=== PATIENT | female | born 1960 | race Native Hawaiian/Other Pacific Islander ===

== ENCOUNTER 2018-03-31 09:13 | Outpatient (CLI) | payer OTHER ==
[~2018-03-31 09:13] MED LIST: ALPR0.2566 PO; ALPR0.5T24 PO; ANORO ELLIPTA 61 AER IN; BENTYL10 MG PO; BUDE1AER3 INH; BUSP5TAB2 PO; CADUET10 MG/10 M PO; CITALOPRAM20 MG PO; CITALOPRAM40 MG PO; CLARITIN10 MG PO; CYCL10TA35 PO; DICY20TA34 PO; ESCITALOPRAM10 MG PO; ESCITALOPRAM20 MG PO; FLUTICASONE50 MCG; GABA300C2 PO; HYDR10TA47 PO; HYDR12.54; HYDR25TA15 PO; JANTOVEN6 MG OR; LEXAPRO20 MG OR; LOSA50TA PO; LOVASTATIN10 MG PO; MECLIZINE25 MG PO; MELOXICAM7.5 MG PO; META800T35; METO50TA27 PO; METOPROLOL25 M1 OR; METOPROLOL25 M1 PO; OLOP0.1S OPTH; OMEPRAZOLE40 MG OR; PANTOPRAZOLE 40MG TA PO; PROMETHAZINE25 M1 RE; PROVENTIL IN; REQUIP0.25 MG OR; ROPINIROLE0.25 MG PO; ROPINIROLE1 MG OR; SUCRALFATE1 GM PO; TOPAMAX50 MG OR; TOPIRAMATE50 MG OR; TOPIRAMATE50 MG PO; TRAMADOL HCL100 M1 OR; WARFARIN4 MG PO; WARFARIN6 MG PO; XANAX XR1 MG OR; Z-PAK PO; ZANTAC300 MG PO; ZIPR20CA PO; ZIPRASIDONE HCL20 MG OR
== END 2018-03-31 21:13 | disposition home or self-care (01) ==
LOC: CT 09:13
DX: M79.602 Pain in left arm (principal)
CPT/HCPCS: 36415; 82565; 84520

== ENCOUNTER 2018-04-19 07:14 | Day surgery (SDC) | payer OTHER ==
[~2018-04-19] VITALS: Ht 30.5 cm; Wt 0.5 kg
[~2018-04-19 07:14] MED LIST changes: -ALPR0.5T24 PO; -ANORO ELLIPTA 61 AER IN; -BENTYL10 MG PO; -BUDE1AER3 INH; -BUSP5TAB2 PO; -ESCITALOPRAM10 MG PO; -FLUTICASONE50 MCG; -GABA300C2 PO; -HYDR12.54; -JANTOVEN6 MG OR; -LEXAPRO20 MG OR; -LOSA50TA PO; -META800T35; -METOPROLOL25 M1 OR; -OMEPRAZOLE40 MG OR; -PANTOPRAZOLE 40MG TA PO; -PROMETHAZINE25 M1 RE; -PROVENTIL IN; -REQUIP0.25 MG OR; -ROPINIROLE1 MG OR; -TOPAMAX50 MG OR; -TOPIRAMATE50 MG OR; -TRAMADOL HCL100 M1 OR; -XANAX XR1 MG OR; -Z-PAK PO; -ZIPR20CA PO; -ZIPRASIDONE HCL20 MG OR
[2018-04-19 11:38] LABS: POTASSIUM 4.3 mmol/L (3.6-5.2)
== END 2018-04-19 15:50 | disposition home or self-care (01) ==
LOC: OR 07:14
PROVIDERS: Student in an Organized Health Care Education/Training Program
PROC: 0HQEXZZ Repair Left Lower Arm Skin, External Approach (ICD-10-PCS; principal; 2018-04-19)
PROC: 0HBEXZZ Excision of Left Lower Arm Skin, External Approach (ICD-10-PCS; 2018-04-19)
DX: C44.619 Basal cell carcinoma of skin of left upper limb, including shoulder (principal)
CPT/HCPCS: 80053; J0690; J1100; J1642; J2001; J2250; J2405; J2704; J3010; J3490

== ENCOUNTER 2018-05-10 20:37 | Emergency (ER) | payer OTHER ==
[~2018-05-10] VITALS: Ht 165.1 cm; Wt 73.5 kg
[2018-05-10 21:47] LABS: PLATELET COUNT 325 K/uL (152-353)
[2018-05-11 00:15] VITALS: BP 114/62; TEMP 97.9
== END 2018-05-11 00:16 | disposition home or self-care (01) ==
LOC: ED 20:37
PROVIDERS: Internal Medicine
DX: E87.6 Hypokalemia (principal); R10.84 Generalized abdominal pain; R19.7 Diarrhea, unspecified; R63.4 Abnormal weight loss
CPT/HCPCS: 74022; 80053; 85027; 96365; 96374; 99284; J1642; J2405

== ENCOUNTER 2018-05-30 00:47 | Inpatient (IN) | payer OTHER ==
[~2018-05-30] VITALS: Ht 170.2 cm; Wt 74.1 kg
[2018-05-30 00:47] VITALS: BP 158/82; TEMP 98.8
[2018-05-30 03:20] LABS: PLATELET COUNT 299 K/uL (152-353)
[2018-05-30 03:25] LABS: POTASSIUM 4.3 mmol/L (3.6-5.2)
[2018-05-30 05:58] VITALS: BP 127/72; TEMP 98; Ht 170.2 cm; Wt 74.1 kg
[2018-05-30 08:00] VITALS: BP 97/55; TEMP 97.8
[2018-05-30 08:06] LABS: PARTIAL THROMBOPLASTIN TIME 23.5 SECONDS (24.5-33.6)
[2018-05-30 12:00] VITALS: BP 128/69; TEMP 97.9
[2018-05-30 16:14] VITALS: BP 110/57; TEMP 98.1
[2018-05-30 20:27] VITALS: BP 130/70; TEMP 97.7
[2018-05-31] VITALS: BP 91/47; TEMP 98.1
[2018-05-31 04:14] VITALS: BP 101/57; TEMP 98
[2018-05-31 08:09] VITALS: BP 129/66; TEMP 97.9
[2018-05-31 12:00] VITALS: BP 105/58; TEMP 97.9
[2018-05-31 16:22] VITALS: BP 98/53; TEMP 98
[2018-05-31 20:15] VITALS: BP 108/71; TEMP 98.8
[2018-06-01 00:14] VITALS: BP 125/71; TEMP 98.4
[2018-06-01 04:00] VITALS: BP 112/65; TEMP 98.2
[2018-06-01 06:42] LABS: PLATELET COUNT 305 K/uL (152-353)
[2018-06-01 06:48] LABS: POTASSIUM 4.2 mmol/L (3.6-5.2)
[2018-06-01 08:10] VITALS: BP 113/68; TEMP 98.1
[2018-06-01 12:20] VITALS: BP 135/77; TEMP 98
[2018-06-01 16:25] VITALS: BP 125/71; TEMP 98.1
[2018-06-01 20:14] VITALS: BP 129/77; TEMP 98.4
[2018-06-02] VITALS: BP 122/68; TEMP 98.1
[2018-06-02 04:00] VITALS: BP 118/76; TEMP 98.1
[2018-06-02 08:00] VITALS: BP 150/92; TEMP 98
[2018-06-02 12:00] VITALS: BP 105/63; TEMP 98.2
[2018-06-02 16:00] VITALS: BP 100/63; TEMP 99.3
[2018-06-02 20:00] VITALS: BP 113/72; TEMP 98.2
[2018-06-03 00:21] VITALS: BP 100/50; TEMP 97.7
[2018-06-03 04:26] VITALS: BP 94/54; TEMP 97.7
[2018-06-03 08:04] VITALS: BP 104/59; TEMP 97.6
== END 2018-06-03 11:23 | disposition home or self-care (01) | DRG 65 ==
LOC: ED 00:47 → MED/SURG 04:15
PROVIDERS: Internal Medicine; ADMIT Family Medicine
DX: I63.89 Other cerebral infarction (principal); G81.91 Hemiplegia, unspecified affecting right dominant side; N39.0 Urinary tract infection, site not specified; N18.4 Chronic kidney disease, stage 4 (severe); I12.9 Hypertensive chronic kidney disease with stage 1 through stage 4 chronic kidney disease, or unspecified chronic kidney disease; E11.22 Type 2 diabetes mellitus with diabetic chronic kidney disease; J44.9 Chronic obstructive pulmonary disease, unspecified; K21.9 Gastro-esophageal reflux disease without esophagitis; F41.8 Other specified anxiety disorders; I25.10 Atherosclerotic heart disease of native coronary artery without angina pectoris; I25.2 Old myocardial infarction
CPT/HCPCS: 80048; 80053; 80307; 81000; 85027; 85610; 85730; 87086; 87088; 93306; 94640; 94664; 94760; 96374; 99284; J0696; J1642; J1650; J2405

== ENCOUNTER 2018-06-18 12:42 | Outpatient (CLI) | payer OTHER ==
[2018-06-18] MEDS ORDERED: DICYCLOMINE HYD20 MG PO (18:38)
[2018-06-18] MEDS ORDERED: METOPROLOL25 M1 PO (18:39)
[2018-06-18] MEDS ORDERED: ROPINIROLE1 MG PO (18:40)
[2018-06-18] MEDS ORDERED: ESCITALOPRAM10 MG PO (18:40)
[2018-06-18] MEDS ORDERED: META800T35 PO (18:41)
[2018-06-18] MEDS ORDERED: ALPR0.5T24 PO (18:41)
[2018-06-18] MEDS ORDERED: HYDR10TA47 PO (18:42)
[2018-06-18] MEDS ORDERED: GABA300C2 PO (18:43)
[2018-06-18] MEDS ORDERED: PANTOPRAZOLE 40MG TA PO (18:43)
[2018-06-18] MEDS ORDERED: HYDROCHLOROT12.5 M1 PO (18:43)
[2018-06-18] MEDS ORDERED: ASPIR-8181 MG PO (18:44)
[2018-06-18] MEDS ORDERED: BUDE1AER3 INH (18:45)
[2018-06-18] MEDS ORDERED: PROVENTIL INH (18:47)
== END 2018-06-18 12:47 | disposition short-term general hospital (02) ==
LOC: AMB 12:42
DX: R40.4 Transient alteration of awareness (principal)
CPT/HCPCS: A0425; A0427

== ENCOUNTER 2018-07-19 18:40 | Inpatient (IN) | payer OTHER ==
[~2018-07-19] VITALS: Ht 162.6 cm; Wt 84.2 kg
[2018-07-19] VITALS (8 sets, daily range): BP systolic 111–137; BP diastolic 68–86; TEMP 97.3–97.7
[~2018-07-19 18:40] MED LIST changes: +ALPR0.5T24 PO; +ANORO ELLIPTA 61 AER IN; +ASPIR-8181 MG PO; +BENTYL10 MG PO; +BUDE1AER3 INH; +BUSP5TAB2 PO; +DICYCLOMINE HYD20 MG PO; +ESCITALOPRAM10 MG PO; +FLUTICASONE50 MCG; +GABA300C2 PO; +HYDR12.54; +HYDROCHLOROT12.5 M1 PO; +JANTOVEN6 MG OR; +LEXAPRO20 MG OR; +LOSA50TA PO; +META800T35; +META800T35 PO; +METOPROLOL25 M1 OR; +OMEPRAZOLE40 MG OR; +PANTOPRAZOLE 40MG TA PO; +PROMETHAZINE25 M1 RE; +PROVENTIL IN; +PROVENTIL INH; +REQUIP0.25 MG OR; +ROPINIROLE1 MG OR; +ROPINIROLE1 MG PO; +TOPAMAX50 MG OR; +TOPIRAMATE50 MG OR; +TRAMADOL HCL100 M1 OR; +XANAX XR1 MG OR; +Z-PAK PO; +ZIPR20CA PO; +ZIPRASIDONE HCL20 MG OR
[2018-07-19 19:44] LABS: PLATELET COUNT 367 K/uL (152-353)
[2018-07-19 20:22] LABS: POTASSIUM 2.2 mmol/L (3.6-5.2)
[2018-07-20 01:10] VITALS: BP 104/63; TEMP 98.5; Ht 162.6 cm; Wt 84.2 kg
[2018-07-20 05:06] VITALS: BP 98/54; TEMP 99
[2018-07-20 06:30] LABS: POTASSIUM 3.7 mmol/L (3.6-5.2)
[2018-07-20 06:49] LABS: PLATELET COUNT 215 K/uL (152-353)
[2018-07-20 08:16] VITALS: BP 94/63; TEMP 97.9
[2018-07-20 12:16] VITALS: BP 117/71; TEMP 98.5
[2018-07-20 16:08] VITALS: BP 78/58; TEMP 99
[2018-07-20 20:00] VITALS: BP 107/60; TEMP 98.5
[2018-07-21] VITALS: BP 90/52; TEMP 97.6
[2018-07-21 04:00] VITALS: BP 90/51; TEMP 98.4
[2018-07-21 06:08] LABS: POTASSIUM 3.5 mmol/L (3.6-5.2)
[2018-07-21 08:15] VITALS: BP 123/66; TEMP 98.6
[2018-07-21 12:20] VITALS: BP 114/54; TEMP 98.8
[2018-07-21 16:20] VITALS: BP 107/62; TEMP 98.6
[2018-07-21 20:00] VITALS: BP 108/58; TEMP 98.5
[2018-07-22] VITALS: BP 104/53; TEMP 98.8
[2018-07-22 04:00] VITALS: BP 111/68; TEMP 98
[2018-07-22 08:01] VITALS: BP 163/83; TEMP 98.7
[2018-07-22 12:00] VITALS: BP 147/84; TEMP 98
[2018-07-22 16:00] VITALS: BP 154/69; TEMP 98
[2018-07-22 20:23] VITALS: BP 130/82; TEMP 98.1
[2018-07-23 00:02] VITALS: BP 127/73; TEMP 98.8
[2018-07-23 04:00] VITALS: BP 140/85; TEMP 98.8
[2018-07-23 05:25] LABS: POTASSIUM 4.3 mmol/L (3.6-5.2)
[2018-07-23 05:51] LABS: PLATELET COUNT 271 K/uL (152-353)
[2018-07-23 08:03] VITALS: BP 145/91; TEMP 98
[2018-07-23 12:00] VITALS: BP 154/62; TEMP 98.8
[2018-07-23 16:09] VITALS: BP 144/78; TEMP 98.1
[2018-07-23 20:00] VITALS: BP 128/77; TEMP 97.8
[2018-07-24] VITALS (7 sets, daily range): BP systolic 140–168; BP diastolic 65–86; TEMP 97.9–99.4
[2018-07-25 04:24] VITALS: BP 152/92; TEMP 97.4
[2018-07-25 08:00] VITALS: BP 155/88; TEMP 98.9
[2018-07-25 12:00] VITALS: BP 162/86; TEMP 98.6
[2018-07-25 16:10] VITALS: BP 145/82; TEMP 98.3
[2018-07-25 20:00] VITALS: BP 144/87; TEMP 98.8
[2018-07-25 23:59] VITALS: BP 135/72; TEMP 98.6
[2018-07-26 04:00] VITALS: BP 141/79; TEMP 98.5
[2018-07-26 08:00] VITALS: BP 173/73; TEMP 99.2
== END 2018-07-26 11:02 | disposition home or self-care (01) | DRG 191 ==
LOC: ED 18:40 → MED/SURG 21:32
PROVIDERS: Family Medicine; Internal Medicine; ADMIT Internal Medicine
DX: J44.0 Chronic obstructive pulmonary disease with (acute) lower respiratory infection (principal); N18.4 Chronic kidney disease, stage 4 (severe); E87.1 Hypo-osmolality and hyponatremia; J20.9 Acute bronchitis, unspecified; J44.1 Chronic obstructive pulmonary disease with (acute) exacerbation; R51 Headache; K21.9 Gastro-esophageal reflux disease without esophagitis; G25.81 Restless legs syndrome; F41.8 Other specified anxiety disorders; I12.9 Hypertensive chronic kidney disease with stage 1 through stage 4 chronic kidney disease, or unspecified chronic kidney disease; Z86.73 Personal history of transient ischemic attack (TIA), and cerebral infarction without residual deficits; I25.10 Atherosclerotic heart disease of native coronary artery without angina pectoris; I25.2 Old myocardial infarction; E87.6 Hypokalemia
CPT/HCPCS: 36415; 80048; 80053; 82607; 83735; 85027; 87040; 87502; 93005; 94640; 94664; 94760; 96365; 96366; 96375; 99284; J0456; J0696; J1642; J2405; J2930

== ENCOUNTER 2018-09-11 23:30 | Outpatient (CLI) | payer OTHER | END 2018-09-11 23:33 | disposition short-term general hospital (02) | LOC: AMB 23:30 | DX: J44.1 Chronic obstructive pulmonary disease with (acute) exacerbation (principal); R06.02 Shortness of breath | CPT/HCPCS: A0425; A0427 ==

== ENCOUNTER 2018-09-11 23:36 | Emergency (ER) | payer OTHER ==
[~2018-09-11] VITALS: Ht 162.6 cm; Wt 83.9 kg
[2018-09-12 00:11] LABS: PLATELET COUNT 471 K/uL (152-353)
[2018-09-12 00:26] LABS: POTASSIUM 2.6 mmol/L (3.6-5.2)
[2018-09-12 01:51] VITALS: BP 117/84; TEMP 98.5
== END 2018-09-12 01:57 | disposition home or self-care (01) ==
LOC: ED 23:36
PROVIDERS: Family Medicine
DX: J40 Bronchitis, not specified as acute or chronic (principal); E87.6 Hypokalemia; R42 Dizziness and giddiness
CPT/HCPCS: 36415; 80053; 81000; 85027; 94664; 96374; 96375; 99284; J1642; J2405; J2930

== ENCOUNTER 2018-09-18 21:32 | Outpatient (CLI) | payer OTHER ==
[2018-09-18] MEDS ORDERED: KLOR-CON M2020 MEQ PO (22:27)
[2018-09-18] MEDS ORDERED: BEVESPI AEROSPH1 AER INH (22:28)
[2018-09-18] MEDS ORDERED: ONDANSETRON4 M2 PO (22:29)
== END 2018-09-18 21:33 | disposition short-term general hospital (02) ==
LOC: AMB 21:32
DX: R06.02 Shortness of breath (principal); R53.81 Other malaise
CPT/HCPCS: A0425; A0427

== ENCOUNTER 2018-09-18 21:34 | Emergency (ER) | payer OTHER ==
[~2018-09-18] VITALS: Ht 170.2 cm; Wt 72.6 kg
[2018-09-18] MEDS ORDERED: KLOR-CON M2020 MEQ PO (22:27)
[2018-09-18] MEDS ORDERED: BEVESPI AEROSPH1 AER INH (22:28)
[2018-09-18] MEDS ORDERED: ONDANSETRON4 M2 PO (22:29)
[2018-09-18 23:01] LABS: PLATELET COUNT 468 K/uL (152-353)
[2018-09-19 00:48] VITALS: BP 135/59; TEMP 98.5
== END 2018-09-19 00:52 | disposition home or self-care (01) ==
LOC: ED 21:41
PROVIDERS: Internal Medicine
DX: R05 Cough (principal); D72.828 Other elevated white blood cell count; J40 Bronchitis, not specified as acute or chronic
CPT/HCPCS: 36415; 80053; 82805; 85027; 94664; 99283; J1642

== ENCOUNTER 2019-01-05 15:17 | Outpatient (CLI) | payer OTHER ==
[~2019-01-05 15:17] MED LIST changes: +BEVESPI AEROSPH1 AER INH; +KLOR-CON M2020 MEQ PO; +ONDANSETRON4 M2 PO
== END 2019-01-05 20:49 | disposition home or self-care (01) ==
LOC: RAD 15:17
DX: M25.531 Pain in right wrist (principal)

== ENCOUNTER 2019-06-20 19:13 | Outpatient (CLI) | payer OTHER | END 2019-06-20 19:18 | disposition short-term general hospital (02) | LOC: AMB 19:13 | DX: M54.5 Low back pain (principal); S41.112A Laceration without foreign body of left upper arm, initial encounter; W20.8XXA Other cause of strike by thrown, projected or falling object, initial encounter; Y92.017 Garden or yard in single-family (private) house as the place of occurrence of the external cause | CPT/HCPCS: A0425; A0427 ==

== ENCOUNTER 2019-06-20 19:24 | Emergency (ER) | payer OTHER ==
[~2019-06-20] VITALS: Ht 170.2 cm; Wt 63.5 kg
[2019-06-20 22:09] VITALS: BP 129/74; TEMP 97.7
== END 2019-06-20 22:10 | disposition home or self-care (01) ==
LOC: ED 19:24
DX: S51.812A Laceration without foreign body of left forearm, initial encounter (principal); S50.12XA Contusion of left forearm, initial encounter; M54.5 Low back pain; W18.09XA Striking against other object with subsequent fall, initial encounter; Y92.027 Garden or yard of mobile home as the place of occurrence of the external cause
CPT/HCPCS: 99283

== ENCOUNTER 2019-09-10 00:40 | Outpatient (CLI) | payer OTHER | END 2019-09-10 00:45 | disposition short-term general hospital (02) | LOC: AMB 00:40 | DX: R07.89 Other chest pain (principal); R00.0 Tachycardia, unspecified | CPT/HCPCS: A0425; A0427 ==

== ENCOUNTER 2019-09-10 00:49 | Emergency (ER) | payer OTHER ==
[~2019-09-10] VITALS: Ht 170.2 cm; Wt 63.5 kg
[2019-09-10 01:28] LABS: PLATELET COUNT 394 K/uL (152-353)
[2019-09-10 01:31] LABS: POTASSIUM 3.4 mmol/L (3.6-5.2); SODIUM 142 mmol/L (136-145)
[2019-09-10 02:50] VITALS: BP 148/94; TEMP 98.3
== END 2019-09-10 02:50 | disposition home or self-care (01) ==
LOC: ED 00:49
PROVIDERS: Emergency Medicine
DX: M94.0 Chondrocostal junction syndrome [Tietze] (principal); J44.9 Chronic obstructive pulmonary disease, unspecified
CPT/HCPCS: 36415; 80053; 82272; 82550; 83735; 83880; 84484; 85027; 93005; 96374; 99284; J1885

== ENCOUNTER 2019-09-26 13:20 | Outpatient (CLI) | payer OTHER ==
[2019-09-27] MEDS ORDERED: ROPINIROLE0.5 MG PO (19:33)
[2019-09-27] MEDS ORDERED: FAMOTIDINE40 MG PO (19:34)
[2019-09-27] MEDS ORDERED: GABA300C2 PO (19:35)
[2019-09-27] MEDS ORDERED: ZOCOR5 MG PO (19:36)
[2019-09-27] MEDS ORDERED: ALLERGY RE50 MCG/ACT (19:38)
[2019-09-27] MEDS ORDERED: TOPAMAX50 MG PO (19:39)
[2019-09-27] MEDS ORDERED: CITALOPRAM20 MG PO (19:40)
[2019-09-27] MEDS ORDERED: TOPIRAMATE50 MG PO (19:44)
== END 2019-09-26 20:10 | disposition home or self-care (01) ==
LOC: RAD 13:20
DX: J44.0 Chronic obstructive pulmonary disease with (acute) lower respiratory infection (principal)

== ENCOUNTER 2019-10-03 12:38 | Outpatient (CLI) | payer OTHER ==
[~2019-10-03 12:38] MED LIST changes: +ALLERGY RE50 MCG/ACT; +FAMOTIDINE40 MG PO; +ROPINIROLE0.5 MG PO; +TOPAMAX50 MG PO; +ZOCOR5 MG PO
== END 2019-10-03 12:45 | disposition short-term general hospital (02) ==
LOC: AMB 12:38
DX: R06.02 Shortness of breath (principal); R05 Cough; R42 Dizziness and giddiness
CPT/HCPCS: A0425; A0427

== ENCOUNTER 2019-10-03 12:46 | Emergency (ER) | payer OTHER ==
[~2019-10-03] VITALS: Ht 170.2 cm; Wt 64.0 kg
[2019-10-03 14:35] LABS: PLATELET COUNT 417 K/uL (152-353)
[2019-10-03 14:39] LABS: POTASSIUM 4.3 mmol/L (3.6-5.2)
[2019-10-03 20:58] VITALS: BP 117/92; TEMP 98.5
== END 2019-10-03 20:58 | disposition home or self-care (01) ==
LOC: ED 12:49
PROVIDERS: Family Medicine
DX: J06.9 Acute upper respiratory infection, unspecified (principal); F17.210 Nicotine dependence, cigarettes, uncomplicated
CPT/HCPCS: 80053; 81000; 85027; 87502; 94664; 96374; 99284; J2930

== ENCOUNTER 2019-10-20 09:48 | Outpatient (CLI) | payer OTHER | END 2019-10-20 22:46 | disposition home or self-care (01) | LOC: RAD 09:48 | DX: M25.512 Pain in left shoulder (principal); M79.602 Pain in left arm ==

== ENCOUNTER 2019-11-24 12:38 | Outpatient (CLI) | payer OTHER | END 2019-11-24 20:30 | disposition home or self-care (01) | LOC: RAD 12:38 | DX: J44.1 Chronic obstructive pulmonary disease with (acute) exacerbation (principal) ==

== ENCOUNTER 2019-12-12 11:33 | Emergency (ER) | payer OTHER ==
[~2019-12-12] VITALS: Ht 170.2 cm; Wt 64.0 kg
[2019-12-12 11:45] VITALS: TEMP 97.9
[2019-12-12 13:32] LABS: PLATELET COUNT 295 K/uL (152-353)
[2019-12-12 13:40] LABS: POTASSIUM 5.9 mmol/L (3.6-5.2)
[2019-12-12 14:25] VITALS: BP 155/70
== END 2019-12-12 14:25 | disposition home or self-care (01) ==
LOC: ED 11:33
PROVIDERS: Family Medicine
DX: G43.909 Migraine, unspecified, not intractable, without status migrainosus (principal); J44.9 Chronic obstructive pulmonary disease, unspecified; F17.210 Nicotine dependence, cigarettes, uncomplicated
CPT/HCPCS: 80053; 80307; 81000; 85027; 87502; 96372; 96375; 99284; J2405; J3030

== ENCOUNTER 2020-01-25 11:15 | Outpatient (CLI) | payer OTHER | END 2020-01-25 19:08 | disposition home or self-care (01) | LOC: CT 11:15 | DX: G43.009 Migraine without aura, not intractable, without status migrainosus (principal) ==

== ENCOUNTER 2020-03-19 10:26 | Outpatient (CLI) | payer OTHER | END 2020-03-19 23:21 | disposition home or self-care (01) | LOC: MRI 10:26 | DX: G43.909 Migraine, unspecified, not intractable, without status migrainosus (principal) | CPT/HCPCS: 36416; 82565; 84520 ==

== ENCOUNTER 2020-04-15 12:54 | Inpatient (IN) | payer OTHER ==
[2020-04-15] VITALS (11 sets, daily range): BP systolic 89–110; BP diastolic 54–65; TEMP 97.9–98.3; Ht 170.2 cm; Wt 63.5 kg
[~2020-04-15] VITALS: Ht 170.2 cm; Wt 63.5 kg
[2020-04-15 13:56] LABS: PLATELET COUNT 378 K/uL (152-353)
[2020-04-15 14:02] LABS: SODIUM 132 mmol/L (136-145)
[2020-04-15 14:04] LABS: POTASSIUM 2.4 mmol/L (3.6-5.2)
[2020-04-15] MEDS ORDERED: GABA300C2 PO (20:37)
[2020-04-16 00:20] VITALS: BP 130/50; TEMP 98.2
[2020-04-16 06:02] LABS: PLATELET COUNT 312 K/uL (152-353)
[2020-04-16 06:51] LABS: POTASSIUM 2.4 mmol/L (3.6-5.2)
[2020-04-16 08:00] VITALS: BP 125/75; TEMP 97.9
[2020-04-16 12:00] VITALS: BP 116/57; TEMP 98
[2020-04-16 16:00] VITALS: BP 111/54; TEMP 97.8
[2020-04-16] MEDS ORDERED: BUDE1AER5 INH (18:37)
[2020-04-16] MEDS ORDERED: SUMATRIPTAN50 MG PO (18:40)
[2020-04-16] MEDS ORDERED: PROAIR HFA PO (18:42)
[2020-04-16] MEDS ORDERED: MOBIC15 MG PO (18:43)
[2020-04-16] MEDS ORDERED: METO-837 PO (18:44)
[2020-04-17 00:05] VITALS: BP 103/50; TEMP 98.8
[2020-04-17 05:21] LABS: PLATELET COUNT 290 K/uL (152-353)
[2020-04-17 05:39] LABS: POTASSIUM 3.3 mmol/L (3.6-5.2)
[2020-04-17 08:00] VITALS: BP 111/62; TEMP 97.7
[2020-04-17 12:00] VITALS: BP 94/54; TEMP 98
== END 2020-04-17 16:20 | disposition home or self-care (01) | DRG 191 ==
LOC: ED 12:54 → MED/SURG 16:00
PROVIDERS: Family Medicine; ADMIT Family Medicine
DX: J44.1 Chronic obstructive pulmonary disease with (acute) exacerbation (principal); E44.1 Mild protein-calorie malnutrition; E87.6 Hypokalemia; E86.0 Dehydration; D64.89 Other specified anemias; I11.0 Hypertensive heart disease with heart failure; I50.9 Heart failure, unspecified
CPT/HCPCS: 36415; 36591; 80053; 81000; 82150; 83605; 83690; 83735; 83880; 84100; 84484; 85027; 87040; 87077; 87185; 87186; 87205; 87635; 93005; 96360; 96365; 96375; 99284; J0696; J2405; J3480; U0003

== ENCOUNTER 2020-04-24 19:23 | Emergency (ER) | payer OTHER ==
[~2020-04-24] VITALS: Ht 170.2 cm; Wt 65.8 kg
[~2020-04-24 19:23] MED LIST changes: +BUDE1AER5 INH; +METO-837 PO; +MOBIC15 MG PO; +PROAIR HFA PO; +SUMATRIPTAN50 MG PO
[2020-04-24 21:03] LABS: PLATELET COUNT 435 K/uL (152-353)
[2020-04-24 23:30] VITALS: BP 131/68; TEMP 98.4
== END 2020-04-24 23:30 | disposition home or self-care (01) ==
LOC: ED 19:23
PROVIDERS: Emergency Medicine
DX: J44.9 Chronic obstructive pulmonary disease, unspecified (principal); Z20.828 Contact with and (suspected) exposure to other viral communicable diseases
CPT/HCPCS: 36415; 80053; 83605; 85027; 85379; 87040; 87635; 93005; 96360; 96365; 96375; 99284; G2023; J0456; J1100; J2405; U0003

== ENCOUNTER 2020-06-28 15:05 | Outpatient (CLI) | payer OTHER ==
[2020-06-28 16:56] LABS: PLATELET COUNT 418 K/uL (152-353)
[2020-06-28 17:19] LABS: POTASSIUM 4.8 mmol/L (3.6-5.2)
== END 2020-06-28 22:26 | disposition home or self-care (01) ==
LOC: LABW 15:05
PROVIDERS: ATTEND Family Medicine
DX: E87.6 Hypokalemia (principal); R51.9 Headache, unspecified
CPT/HCPCS: 36415; 80053; 85027

== ENCOUNTER 2020-07-27 17:00 | Emergency (ER) | payer OTHER ==
[~2020-07-27] VITALS: Ht 170.2 cm; Wt 65.8 kg
[2020-07-27 18:25] LABS: PLATELET COUNT 332 K/uL (152-353)
[2020-07-27 18:59] LABS: POTASSIUM 3.2 mmol/L (3.6-5.2); SODIUM 134 mmol/L (136-145)
[2020-07-27 19:45] VITALS: BP 102/62; TEMP 98.7
== END 2020-07-27 19:45 | disposition home or self-care (01) ==
LOC: ED 17:00
PROVIDERS: Family Medicine
DX: T75.4XXA Electrocution, initial encounter (principal); W86.0XXA Exposure to domestic wiring and appliances, initial encounter; Y92.098 Other place in other non-institutional residence as the place of occurrence of the external cause
CPT/HCPCS: 36415; 80053; 82550; 82553; 83605; 84484; 85027; 93005; 96360; 99284

== ENCOUNTER 2020-09-09 15:33 | Outpatient (CLI) | payer OTHER | END 2020-09-09 20:57 | disposition home or self-care (01) | LOC: RAD 15:33 | PROVIDERS: ATTEND Nurse Practitioner Family | DX: M54.5 Low back pain (principal); M54.6 Pain in thoracic spine; M54.2 Cervicalgia ==

== ENCOUNTER 2020-10-11 16:37 | Outpatient (CLI) | payer OTHER ==
[2020-10-11 17:44] LABS: PLATELET COUNT 329 K/uL (152-353)
[2020-10-11 18:09] LABS: POTASSIUM 2.3 mmol/L (3.6-5.2)
== END 2020-10-11 20:58 | disposition home or self-care (01) ==
LOC: LAB 16:37
PROVIDERS: ATTEND Nurse Practitioner Family
DX: E86.0 Dehydration (principal)
CPT/HCPCS: 80053; 85027

== ENCOUNTER 2020-10-11 19:02 | Observation (INO) | payer OTHER ==
[2020-10-11] VITALS (8 sets, daily range): BP systolic 11–130; BP diastolic 60–65; TEMP 98.2
[~2020-10-11] VITALS: Ht 170.2 cm; Wt 63.3 kg
[2020-10-11 22:32] LABS: POTASSIUM 2.4 mmol/L (3.6-5.2)
[2020-10-12] VITALS (8 sets, daily range): BP systolic 84–126; BP diastolic 42–71; TEMP 97.6–98.6
--- NOTE | 2020-10-12 02:27 | NUR ---
TRANSFERRED PT FROM THE ED TO [facility]. INTERVIEWED PT FOR ADMISSION ASSESSMENT AT THIS TIME.
--- NOTE | 2020-10-12 04:53 | NUR ---
PT RESTING QUIETLY WITH SIDE RAILS UP TIMES THREE, BED IN LOWEST POSITION, AND SEEMS TO BE IN NO ACUTE DISTRESS.
[2020-10-12 08:40] LABS: POTASSIUM 3.3 mmol/L (3.6-5.2)
[2020-10-12 11:32] LABS: PLATELET COUNT 356 K/uL (152-353)
--- NOTE | 2020-10-12 12:20 | NUR ---
Patient's bp was reported to be 89/44 and was recheck and found to be 94/57. Patient is alert and oriented, but patient stated, "that she just felt weak". No acute distress noted, and call light is within reach. Will continue to monitor.
[2020-10-12 15:36] LABS: POTASSIUM 3.3 mmol/L (3.6-5.2)
--- NOTE | 2020-10-12 16:41 | NUR ---
Patient is lying in bed with eyes closed at this time. She has been drowsy since hr operations advisor, but will wake up and talk when stimulated. Patient did wake up and eat lunch, and requested and was carried a fountain soft drink. Patient's bp was rechecked manually and found to be 93/42. Will continue to monitor patient's bp, and status. Call light is within reach.
--- NOTE | 2020-10-12 20:48 | NUR ---
PT'S BP WAS 84/42 AND THEREFORE DECIDED TO HOLD TOPIRAMATE 50 MG DUE TO THE POSSIBLE ADVERSE EFFECT OF HYPOTENSION.
--- NOTE | 2020-10-12 21:00 | NUR ---
IN ROOM WITH PT AT BEDSIDE. CLEAR LUNG SOUNDS HEARD IN ALL 5 LOBES. NO EDEMA SEEN IN UPPER AND LOWER EXTERMITIES. PT. COMPLAINS OF MUSCLE PAIN IN THE LOWER BACK AND A MILD HEADACHE. NOTIFIED DR. HAMMOND IN THE ED AND RETRIEVED AN ORDER FOR CYCLOBENZAPRINE 10 MG PO ONCE AND TORADOL 30 MG IVP ONCE.
[2020-10-12 21:35] LABS: POTASSIUM 3.4 mmol/L (3.6-5.2)
--- NOTE | 2020-10-12 21:49 | NUR ---
IN PT'S ROOM GIVING CYCLOBENZAPRINE 10 MG PO ONCE. TORADOL 30 MG IVP ONCE ALSO GIVEN AT THIS TIME. SIDE RAILS UP TIMES TWO, BED IN LOWEST POSITION, CALL LIGHT WITHIN REACH, AND SEEMS TO BE IN ACUTE DISTRESS. PT. RESPONDS TO VERBAL AND SENSORY STIMULI.
--- NOTE | 2020-10-12 21:49 | NUR ---
ROPINIOLE 0.5 MG NOT GIVEN AT THIS TIME DUE TO PT'S BP AND THE POSSIBLE ADVERSE EFFECTS OF HYPOTENSION
--- NOTE | 2020-10-12 22:50 | NUR ---
NEW BAG OF NORMAL SALINE WITH POTASSIUM 40 MEQ RUNNING AT 100 ML/HR.
--- NOTE | 2020-10-13 00:29 | NUR ---
ROCEPHIN 1 G GIVEN AT THIS TIME. PT. TOLERATED WELL AND IS RESTING QUIETLY, SIDE RAILS UP TIMES THREE, BED IN LOWEST POSITION, AND SEEMS TO BE IN NO ACUTE DISTRESS.
--- NOTE | 2020-10-13 01:43 | NUR ---
PROTONIX 40 MG GIVEN AT THIS TIME. PT. RESTING QUIETLY WITH SIDE RAILS UP TIMES TWO, BED IN LOWEST POSITION, IN NO ACUTE DISTRESS, AND IS RESPONSIVE TO VERBAL STIMULI.
[2020-10-13 04:04] VITALS: BP 105/55; TEMP 98.1
[2020-10-13 05:40] LABS: PLATELET COUNT 313 K/uL (152-353)
[2020-10-13 05:43] LABS: POTASSIUM 3.9 mmol/L (3.6-5.2)
[2020-10-13 08:00] VITALS: BP 141/63; TEMP 98.6
--- NOTE | 2020-10-13 10:10 | NUR ---
10/13/2020 1000 PT ENCOURAGED TO DRINK AND EAT HEALTHY DIET PT EAT A FRUIT BAR THIS AM FOR BREAKFAST STATES SHE CANNOT EAT A BIG BREAKFAST USUALLY.CC
--- NOTE | 2020-10-13 11:46 | NUR ---
10/13/2020 1110 CENTRAL LINE FLUSHED WITH 10ML NS THEN REMOVED FROM LEFT CHEST WALL.APPLIED 2X2 SECURED WITH TAPE.TOLERATED WELL.DISCHARGE INSTRUCTIONS GIVEN AND SIGNED WITH RX GIVEN.TOOK OUT VIA WHEELCHAIR FAMILY TO PICK HER UP PRIVATE VECHICLE.CC
--- NOTE | 2020-10-14 15:42 | NUR ---
pt scheduled for pcp betzy w/ Deepika Marie, [employer] ph [phone], fx [phone] appt 10/14/20 @ 3:45pm and DC summary faxed.
== END 2020-10-13 11:15 | disposition home or self-care (01) ==
LOC: ED 19:02 → MED/SURG 23:45
PROVIDERS: ADMIT Family Medicine; ATTEND Internal Medicine Endocrinology, Diabetes & Metabolism
DX: E87.1 Hypo-osmolality and hyponatremia (principal); E87.6 Hypokalemia; J44.9 Chronic obstructive pulmonary disease, unspecified; I12.9 Hypertensive chronic kidney disease with stage 1 through stage 4 chronic kidney disease, or unspecified chronic kidney disease; N18.30 Chronic kidney disease, stage 3 unspecified; N30.00 Acute cystitis without hematuria; F31.9 Bipolar disorder, unspecified; E78.49 Other hyperlipidemia; N17.9 Acute kidney failure, unspecified; E86.0 Dehydration
CPT/HCPCS: 36415; 80048; 80053; 81000; 82150; 83690; 83735; 85027; 87077; 87088; 87635; 96360; 96361; 96365; 96366; 96375; 99220; 99284; G0378; J0696; J1650; J1885; J2405; J3475; J3490; U0003

== ENCOUNTER 2020-11-01 15:20 | Outpatient (CLI) | payer OTHER | END 2020-11-01 19:28 | disposition home or self-care (01) | LOC: RAD 15:20 | PROVIDERS: ATTEND Nurse Practitioner Family | DX: R05 Cough (principal); E87.1 Hypo-osmolality and hyponatremia | CPT/HCPCS: 83935; 84300 ==

== ENCOUNTER 2020-11-28 11:09 | Outpatient (CLI) | payer OTHER | END 2020-11-28 21:14 | disposition home or self-care (01) | LOC: RAD 11:09 | PROVIDERS: ATTEND Nurse Practitioner Family | DX: S49.92XA Unspecified injury of left shoulder and upper arm, initial encounter (principal) ==

== ENCOUNTER 2020-12-22 21:09 | Inpatient (IN) | payer OTHER ==
[~2020-12-22] VITALS: Ht 170.2 cm; Wt 67.1 kg
[2020-12-22 21:09] VITALS: BP 83/50; TEMP 97.6
[2020-12-22 21:30] VITALS: BP 86/53
[2020-12-22 21:46] LABS: PLATELET COUNT 342 K/uL (152-353)
[2020-12-22 21:58] LABS: POTASSIUM 2.9 mmol/L (3.6-5.2); SODIUM 132 mmol/L (136-145)
[2020-12-22 22:02] LABS: PARTIAL THROMBOPLASTIN TIME 23.6 SECONDS (24.5-33.6)
[2020-12-22 22:06] VITALS: BP 97/55
[2020-12-22 22:10] VITALS: BP 97/55
[2020-12-22 22:28] VITALS: BP 117/67
[2020-12-22 23:38] VITALS: BP 104/67; TEMP 97.4; Ht 170.2 cm; Wt 67.1 kg
[2020-12-23 00:05] VITALS: BP 104/67; TEMP 97.4
--- NOTE | 2020-12-23 00:53 | NUR ---
60 YEAR OLD WHITE FEMALE WAS ADMITTED TO 1108 . PT WAS ADMITTED FROM ER WITH THE DIAGNOSIS OF SYNCOPE/COPD/DEHYDRATION/HYPOTENTION AND HYPOKALEMIA. PT IS FULL CODE STATUS. ASPIRATION PRECAUTIONS IMPLEMENTED. PT IN 45 DEGREE POSITION. PT IS PRESENTLY RECEIVING NS WITH 20 MEQ OF POTASSIUM IVF'S PT DOES HAVE SCRATCHES ANBD ABRASIONS TO HER ARMS AND HEAD FROM RECENT FALLS FROM HOME STRATEGIC INSIGHTS LEAD. NEURO CHECKS WERE DONE. NO DEICITS NOTED. TELEMENTRY WITH NSR. PT WITH JENKINS CATHETAR 18 MALAY INSERTED IN ER. SR ARE UP. BEDSIDE TABLE IN EASY REACH TO PATIENT. BED ALARMS ON. FALL PRECAUTIONS INPROGRESS.
--- NOTE | 2020-12-23 01:54 | NUR ---
PATIENT ARRIVED TO THE FLOOR. PATIENT IS STABLE BUT WEAK AND DROWSEY. PATIENT IS ALERT AND ORIENTED. PATIENT HAS SMALL LASERATIONS TO HER LF FOREHEAD AND FOREARM. PATIENT HAS A 18F JENKINS CATHITER. PATIENT IS RESTING, SLEEPING ON HER RT SIDE. PATIENTS BREATHS ARE REGULAR NON LABORED.
--- NOTE | 2020-12-23 02:45 | NUR ---
RT AT BEDTIME, PATIENT RECIEVING BREATHING TREATMENT
[2020-12-23 04:22] VITALS: BP 97/56; TEMP 97.5
[2020-12-23 08:00] VITALS: BP 118/59; TEMP 97.9
[2020-12-23 08:06] LABS: PLATELET COUNT 329 K/uL (152-353)
[2020-12-23 08:24] LABS: POTASSIUM 4.3 mmol/L (3.6-5.2)
--- NOTE | 2020-12-23 11:26 | NUR ---
INFORMED DR. CHURCHILL OF PT'S PAIN NOT BEING RELEIVED BY TORADOL, DR. CHURCHILL ORDERS TO GIVE NORCO 5/325 PO Q6 PRN FOR PAIN, HE ALSO ORDERS FOR FOR PT AND OT CONSULT DUE TO PT HAVING DIZZYNESS AND HISTORY OF VERTIGO, NO FURTHER ORDERS GIVEN AT THIST TIME
[2020-12-23 12:00] VITALS: BP 94/51; TEMP 97.9
[2020-12-23 16:00] VITALS: BP 90/50; TEMP 98.1
--- NOTE | 2020-12-23 16:15 | NUR ---
INFORMED DR. CHURCHILL OF PT MANUAL BP OF 90/50, DR. CHURCHILL ORDERS TO BOLUS PT WITH 1L NS X1 NOW, NO FURTHER ORDERS GIVEN
--- NOTE | 2020-12-23 17:40 | NUR ---
INFORMED DR. CHURCHILL OF PT MANUAL BP BEING 100/54 AFTER THE 1L BOLUS, NO ORDERS GIVEN AT THIS TIME
[2020-12-23 20:00] VITALS: BP 112/55; TEMP 98.7
[2020-12-24 00:11] VITALS: BP 114/59; TEMP 98.2
--- NOTE | 2020-12-24 00:30 | NUR ---
PATIENT'S IV TO RIGHT AC INFUSING LEVAQUIN AND NOTED TO BE SWOLLEN. LEVAQUIN STOPPED AT THIS TIME. WARM COMPRESS APPLIED TO PATIENT'S ARM. NAD NOTED. PATIENT RESTING QUIETLY IN BED.
[2020-12-24 04:00] VITALS: BP 138/85; TEMP 97.9
--- NOTE | 2020-12-24 06:20 | NUR ---
22G TO RIGHT AC D/C AT THIS TIME. PATIENT TOLERATED WELL. RESTING IN BED QUIETLY WITH EYES CLOSED. NAD NOTED.
[2020-12-24 07:49] LABS: PLATELET COUNT 307 K/uL (152-353)
[2020-12-24 08:00] VITALS: BP 163/82; TEMP 97.9
[2020-12-24 08:04] LABS: POTASSIUM 4.8 mmol/L (3.6-5.2)
--- NOTE | 2020-12-24 08:10 | NUR ---
CRITICAL WBC OF 29.[address] CHURCHILL, NO ORDERS GIVEN AT THIS TIME
[2020-12-24 12:00] VITALS: BP 133/72; TEMP 98.1
[2020-12-24] MEDS ORDERED: ALLEGRA ALRG180 M1 PO (14:33)
[2020-12-24] MEDS ORDERED: AMLO2.5T PO (14:34)
[2020-12-24] MEDS ORDERED: BAYER ASPIRIN E81 MG PO (14:35)
[2020-12-24] MEDS ORDERED: IPRATROPIUM/ INH (14:37)
[2020-12-24] MEDS ORDERED: COZAAR25 MG PO (14:38)
[2020-12-24] MEDS ORDERED: SIMV10TA PO (14:38)
[2020-12-24] MEDS ORDERED: BUDE1AER5 INH (14:39)
[2020-12-24] MEDS ORDERED: VENLAFAXINE H37.5 MG PO (14:42)
[2020-12-24] MEDS ORDERED: VITAMIN D35000 UNI6 PO (14:43)
[2020-12-24 16:00] VITALS: BP 132/68; TEMP 98.4
--- NOTE | 2020-12-24 16:00 | NUR ---
IN PT RM TO ADMINISTER PAIN MEDICATION DUE TO GENERLZIED PAIN FROM PREVIOUS FALL BEFORE ADMISSION, PT STATES SHE FEELS ALOT BETTER AFTER PHYSICAL THERAPY PERFORMED JONAH STEEL, SHE STATES "I DONT FEEL DIZZY ANYMORE WHEN I LIFT MY HEAD UP LIKE BEFORE," 1000ML CLEAR YELLOW URINE EMPTIED FROM JENKINS BAG, PT HAS NO FURTHER NEEDS AT THIS TIME, CALL LIGHT WITHIN REACH, WILL CONTINUE TO MONITOR
[2020-12-24 20:00] VITALS: BP 121/68; TEMP 97.6
--- NOTE | 2020-12-24 20:15 | NUR ---
ENTERED PATIENT'S ROOM AT THIS TIME. PATIENT RESTING QUIETLY IN BED WITH EYES CLOSED. NAD NOTED. PORT TO LEFT CHEST FLUSHED WITH 10CC OF NS WITH NO COMPLICATIONS. REPORTS PAIN TO RIGHT SIDE FROM PREVIOUS FALL. 18FR JENKINS DRAINING CLEAR, YELLOW URINE. RESPIRATORY IN TO PERFORM BREATHING TREATMENT. BED LOCKED AND IN LOWEST POSITION. CALL LIGHT WITHIN REACH.
[2020-12-25] VITALS: BP 120/68; TEMP 98
--- NOTE | 2020-12-25 01:00 | NUR ---
PATIENT RESTING QUIETLY IN BED. IV ABX STARTED. SHE C/O PAIN TO LEFT SIDE OF BODY. NORCO GIVEN AT THIS TIME. BED LOCKED AND IN LOWEST POSITION. CALL LIGHT WITHIN REACH.
--- NOTE | 2020-12-25 02:30 | NUR ---
PATIENT RESTING QUIETLY IN BED. RESPIRATIONS EVEN AND UNLABORED. NAD NOTED. ZITHROMAX STARTED AT THIS TIME VIA PORT. CALL LIGHT WITHIN REACH.
[2020-12-25 04:00] VITALS: BP 129/75; TEMP 97.7
[2020-12-25 05:31] LABS: PLATELET COUNT 326 K/uL (152-353)
[2020-12-25 06:07] LABS: POTASSIUM 4.3 mmol/L (3.6-5.2)
[2020-12-25 08:00] VITALS: BP 166/82; TEMP 98.5
--- NOTE | 2020-12-25 08:00 | NUR ---
ATTEMPTED TO REACH DR. ZULUAGA WITH CONCERNS TO D/Guy JENKINS. UNABLE TO REACH HER. WILL ATTEMPT AGAIN.
--- NOTE | 2020-12-25 08:54 | NUR ---
PATIENT REQUESTED PAIN MEDICATION. PRN NORCO GIVEN PER MD ORDERS.
[2020-12-25 12:00] VITALS: BP 111/81; TEMP 98.6
--- NOTE | 2020-12-25 13:17 | NUR ---
ORDER RECEIVED TO D/C JENKINS WITH BLADDER TRAINING PER DR. ZULUAGA. JENKINS CLAMPED AT THIS TIME AND PATIENT EDUCATION PROVIDED ON BLADDER TRAINING. PT VERBALIZED UNDERSTANDING.
--- NOTE | 2020-12-25 14:33 | NUR ---
PATIENT CALLED WITH THE URGGE TO VOID. PATIENT JENKINS UNCLAMPED.
[2020-12-25] MEDS ORDERED: PRED10TA27 PO ×3 (14:34→14:39)
--- NOTE | 2020-12-25 14:40 | NUR ---
PT JENKINS CLAMPED. PATIENT CALL LIGHT WITHIN REACH. NAD NOTED.
--- NOTE | 2020-12-25 15:15 | NUR ---
PATIENT CALLED FOR JENKINS TO BE UNCLAMPED. ALLOWED TO DRAIN INTO BAG. JENKINS BAG EMPTIED OF 650 ML OF CLEAR YELLOW URINE. 10 ML OF SALINE COLLECTED FROM BALLOON. PATIENT JENKINS D/C. PATIENT TOLERATED WELL. PATIENT EDUCATED TO CALLL WHEN SHE FELT THE URGE TO URINATE. PATIENT VERBALIZED UNDERSTANDING.
--- NOTE | 2020-12-25 15:35 | NUR ---
PATIENT CALLED TO USE THE BATHROOM. PATIENT AMBULATED TO RESTROOM WITH NO DIFFICULTY OR DIZZINESS. PATIENT ABLE TO VOID. PATIENT BACK IN BED. NAD NOTED. PATIENT RESTING COMFORTABLY. SIDE RAILS UP X2 WITH CALL LIGHT WITHIN REACH.
--- NOTE | 2020-12-25 16:16 | NUR ---
PATIENT'S DAUGHTER CONTACTED FOR DISCHARGE HOME.
--- NOTE | 2020-12-25 16:50 | NUR ---
PATIENT DISCHARGED TO HOME VIA WHEELCHAIR TO PERSONAL VEHICLE WITH DAUGHTER DRIVING. DISCHARGE INSTRUCTIONS AND PRESCRIPTIONS PROVIDED TO PATIENT. PATIENT VERBALIZED UNDERSTANDING.
== END 2020-12-25 16:48 | disposition home or self-care (01) | DRG 191 ==
LOC: ED 21:09 → MED/SURG 22:45
PROVIDERS: ADMIT Hospitalist; ATTEND Internal Medicine Endocrinology, Diabetes & Metabolism
DX: J44.1 Chronic obstructive pulmonary disease with (acute) exacerbation (principal); E87.1 Hypo-osmolality and hyponatremia; N17.8 Other acute kidney failure; F31.30 Bipolar disorder, current episode depressed, mild or moderate severity, unspecified; I13.0 Hypertensive heart and chronic kidney disease with heart failure and stage 1 through stage 4 chronic kidney disease, or unspecified chronic kidney disease; R55 Syncope and collapse; R42 Dizziness and giddiness; E87.6 Hypokalemia; E78.49 Other hyperlipidemia; F12.10 Cannabis abuse, uncomplicated; Z86.73 Personal history of transient ischemic attack (TIA), and cerebral infarction without residual deficits; K21.9 Gastro-esophageal reflux disease without esophagitis; N18.30 Chronic kidney disease, stage 3 unspecified; I50.89 Other heart failure; I95.89 Other hypotension; S01.81XA Laceration without foreign body of other part of head, initial encounter; W18.39XA Other fall on same level, initial encounter; Y92.89 Other specified places as the place of occurrence of the external cause
CPT/HCPCS: 36415; 51702; 80048; 80053; 80307; 80320; 81000; 82550; 83605; 83880; 84484; 85027; 85610; 85730; 87040; 87088; 87635; 93005; 94640; 94664; 94760; 96360; 96361; 96365; 96366; 96375; 99284; J0456; J1020; J1642; J1650; J1885; J1940; J1956; J2060; J2405; J2920; J2930; J3490; U0003

== ENCOUNTER 2021-01-07 14:55 | Emergency (ER) | payer OTHER ==
[~2021-01-07] VITALS: Ht 170.2 cm; Wt 59.0 kg
[2021-01-07 14:55] VITALS: BP 130/91; TEMP 98.6
[~2021-01-07 14:55] MED LIST changes: +ALLEGRA ALRG180 M1 PO; +AMLO2.5T PO; +BAYER ASPIRIN E81 MG PO; +COZAAR25 MG PO; +IPRATROPIUM/ INH; +PRED10TA27 PO; +SIMV10TA PO; +VENLAFAXINE H37.5 MG PO; +VITAMIN D35000 UNI6 PO
[2021-01-07 15:55] LABS: POTASSIUM 4.3 mmol/L (3.6-5.2)
[2021-01-07 16:15] LABS: PLATELET COUNT 474 K/uL (152-353)
[2021-01-08] MEDS ORDERED: TOPAMAX50 MG PO (09:41)
[2021-01-08] MEDS ORDERED: ACID CONTROL MA20 MG PO (09:41)
[2021-01-08] MEDS ORDERED: SIMV10TA PO (09:42)
[2021-01-08] MEDS ORDERED: VENL37.511 PO (09:43)
[2021-01-08] MEDS ORDERED: PROAIR HFA INH (09:44)
== END 2021-01-07 18:41 | disposition other institution (70) ==
LOC: ED 14:55
PROVIDERS: Family Medicine
DX: R45.851 Suicidal ideations (principal); F32.89 Other specified depressive episodes; Z11.52 Encounter for screening for COVID-19; Z04.6 Encounter for general psychiatric examination, requested by authority
CPT/HCPCS: 80053; 80307; 80320; 80329; 81000; 85027; 87635; 93005; 99285; U0003

== ENCOUNTER 2021-01-30 14:57 | Outpatient (CLI) | payer OTHER ==
[~2021-01-30 14:57] MED LIST changes: +ACID CONTROL MA20 MG PO; +ARIPIPRAZOLE10 MG PO; +EFFEXOR 75 MG PO; +FOLI1TAB26 PO; +PROAIR HFA INH; +VENL37.511 PO
== END 2021-01-30 23:59 | disposition home or self-care (01) ==
LOC: RAD 14:57
PROVIDERS: ATTEND Nurse Practitioner Family
DX: S69.91XA Unspecified injury of right wrist, hand and finger(s), initial encounter (principal)

== ENCOUNTER 2021-02-25 11:31 | Emergency (ER) | payer OTHER ==
[~2021-02-25] VITALS: Ht 170.2 cm; Wt 60.8 kg
[2021-02-25 12:20] LABS: PLATELET COUNT 445 K/uL (152-353)
[2021-02-25 12:29] LABS: SODIUM 139 mmol/L (136-145)
[2021-02-25 12:35] LABS: POTASSIUM 2.1 mmol/L (3.6-5.2)
[2021-02-25 17:00] VITALS: BP 106/75; TEMP 97.9
== END 2021-02-25 17:00 | disposition short-term general hospital (02) ==
LOC: ED 11:31
PROVIDERS: Family Medicine
DX: R94.31 Abnormal electrocardiogram [ECG] [EKG] (principal); I95.89 Other hypotension; E87.6 Hypokalemia; Z11.52 Encounter for screening for COVID-19
CPT/HCPCS: 80053; 82550; 84484; 85027; 87635; 93005; 96360; 99284; U0003

== ENCOUNTER 2021-03-14 20:57 | Emergency (ER) | payer OTHER ==
[~2021-03-14] VITALS: Ht 170.2 cm; Wt 65.8 kg
[2021-03-14 22:09] LABS: PLATELET COUNT 329 K/uL (152-353)
[2021-03-14 22:15] LABS: POTASSIUM 3.3 mmol/L (3.6-5.2)
[2021-03-14 23:35] VITALS: BP 147/81; TEMP 98.9
== END 2021-03-14 23:35 | disposition home or self-care (01) ==
LOC: ED 20:57
PROVIDERS: Family Medicine
DX: U07.1 COVID-19 (principal); E87.6 Hypokalemia
CPT/HCPCS: 80053; 85027; 87502; 87635; 99283; U0003

== ENCOUNTER 2021-03-16 16:46 | Inpatient (IN) | payer OTHER ==
[~2021-03-16] VITALS: Ht 170.2 cm; Wt 61.2 kg
[2021-03-16 16:55] VITALS: BP 157/90; TEMP 99.2
[2021-03-16 17:20] LABS: PLATELET COUNT 334 K/uL (152-353)
[2021-03-16 17:25] VITALS: BP 145/89
[2021-03-16 17:28] LABS: POTASSIUM 3.8 mmol/L (3.6-5.2); SODIUM 138 mmol/L (136-145)
[2021-03-16 17:38] LABS: PARTIAL THROMBOPLASTIN TIME 25.9 SECONDS (24.5-33.6)
--- NOTE | 2021-03-16 21:45 | NUR ---
PT IS A 60 YEAR OLD FEMALE ADMITTED TO [facility] WITH COVID 19 AND N/V/D. PT WAS POSITIONED IN BED AND CONNECTED TO ICU MONITORING EQUIPMENT. O2 SATS ARE 92 TO 98 PERCENT ON ROOM AIR. SR UP.
[2021-03-16 22:38] VITALS: BP 134/67; TEMP 98.2; Ht 170.2 cm; Wt 61.2 kg
--- NOTE | 2021-03-17 01:00 | NUR ---
PT RESTING WITH EYES CLOSED.
[2021-03-17 08:00] VITALS: BP 107/75; TEMP 97.2
[2021-03-17 08:24] LABS: PLATELET COUNT 318 K/uL (152-353)
--- NOTE | 2021-03-17 08:30 | NUR ---
PT'S DAUGHTER CALLED AND ASKED TO SPEAK TO PT. CORDLESS PHONE TAKEN TO PT. CALLED BACK TO BEDSIDE BY PT AND PT NOTED TO BE UPSET AND CRYING, PT ASKED ME IF I COULD HELP HER READ OFF THE 3 DIGITS ON BACK OF CARD TO HER DAUGHTER OVER THE PHONE. WILL WAIT FOR PT'S DAUGHTER TO CALL BACK
[2021-03-17 08:45] LABS: POTASSIUM 4.7 mmol/L (3.6-5.2)
--- NOTE | 2021-03-17 09:00 | NUR ---
DAUGHTER CALLED BACK AND PER THE PT'S PERMISSION THE 3 DIGITS ON BACK OF CARD GIVEN TO THE [employer] ON PHONE SO "THEY COULD PAY A LIGHT BILL"..EXPLAINED TO THEM PT HAD BEEN MEDICTED PRIOR TO [facility] PHONE CALL FOR FREEDMAN AND NAUSEA AND PT WAS NOW UPSET AND NOTED TO BE CRYING. EXPLAINED TO FAMILY OVER THE PHONE THAT PT NEEDED TO REST NOT UPSET. ASKED FAMILY TO GIVE PT TIMES TO REST AND CALL BACK AT A LATER TIMES.
[2021-03-17 11:30] VITALS: BP 144/83; TEMP 99
[2021-03-17] MEDS ORDERED: ABILIFY MYCITE5 MG PO (12:03)
--- NOTE | 2021-03-17 13:30 | NUR ---
DR CHURCHILL HERE AT BS MAKING ROUNDS AT THIS TIME. PT REQUESTING TO BE DISCHARGED HOME.
--- NOTE | 2021-03-17 14:00 | NUR ---
VERBAL ORDERS REC'D FROM DR CHURCHILL THAT HE WAS GOING TO DISCHARGE PT HOME IN APPROX HR. PT AWARE AND VERBALZIES UNDERSTANDING
--- NOTE | 2021-03-17 16:04 | NUR ---
SPOKE WITH PT'S DAUGHTER AND INFORMED HER PT WAS READY TO BE DISCHARGED HOME. DAUGHTER STATED THAT SHE WOULD BE HERE WITHIN 15 MINS TO GET HER HOME. PT INFORMED. ALL DISCHARGE INSTRUCTIONS EXPLAINED AND GIVEN TO PT. PT VERBALIZED UNDERSTANDING.
[2021-03-17 16:07] VITALS: TEMP 98.9
--- NOTE | 2021-03-17 16:25 | NUR ---
PT ASSISTED TO PERSONAL VEHICHLE WHERE DAUGHTER WAS WAITING TO TAKE HER HOME. PT LEFT VIA WC. NO ACUTE DISTRESS NOTED. PT TALING TO STAFF.
== END 2021-03-17 16:25 | disposition home or self-care (01) | DRG 178 ==
LOC: ED 16:46 → PCU 18:45
PROVIDERS: ADMIT Hospitalist; ATTEND Internal Medicine Endocrinology, Diabetes & Metabolism
DX: U07.1 COVID-19 (principal); G40.802 Other epilepsy, not intractable, without status epilepticus; R11.2 Nausea with vomiting, unspecified; R53.1 Weakness; E03.8 Other specified hypothyroidism; K21.9 Gastro-esophageal reflux disease without esophagitis; I11.0 Hypertensive heart disease with heart failure; I50.9 Heart failure, unspecified; Z86.73 Personal history of transient ischemic attack (TIA), and cerebral infarction without residual deficits; I25.2 Old myocardial infarction
CPT/HCPCS: 80053; 82550; 83880; 84484; 85027; 85610; 85730; 93005; 94760; 96360; 96375; 99284; J1100; J1650; J1885; J2405; J3490

== ENCOUNTER 2021-12-30 20:58 | Emergency (ER) | payer OTHER ==
[~2021-12-30] VITALS: Ht 170.2 cm; Wt 69.4 kg
[~2021-12-30 20:58] MED LIST changes: +ABILIFY MYCITE5 MG PO
[2021-12-30 22:40] VITALS: BP 148/79; TEMP 98.6
== END 2021-12-30 22:43 | disposition home or self-care (01) ==
LOC: ED 20:58
DX: M25.561 Pain in right knee (principal); M17.11 Unilateral primary osteoarthritis, right knee; M25.512 Pain in left shoulder
CPT/HCPCS: 93005; 96372; 99283; J1885; J2930

== ENCOUNTER 2022-01-26 14:35 | Outpatient (CLI) | payer OTHER ==
[2022-01-26 15:50] LABS: PLATELET COUNT 364 K/uL (152-353)
[2022-01-26 16:28] LABS: POTASSIUM 3.6 mmol/L (3.6-5.2)
== END 2022-01-26 19:03 | disposition home or self-care (01) ==
LOC: LABW 14:35
PROVIDERS: ATTEND Nurse Practitioner Family
DX: M25.579 Pain in unspecified ankle and joints of unspecified foot (principal); M79.662 Pain in left lower leg; R60.0 Localized edema; L03.119 Cellulitis of unspecified part of limb
CPT/HCPCS: 36415; 80053; 83880; 85027

== ENCOUNTER 2022-07-22 12:51 | Emergency (ER) | payer OTHER ==
[~2022-07-22] VITALS: Ht 170.2 cm; Wt 59.0 kg
[2022-07-22 13:34] LABS: PLATELET COUNT 359 K/uL (152-353)
[2022-07-22 14:20] VITALS: BP 103/58; TEMP 99.3
== END 2022-07-22 14:47 | disposition home or self-care (01) ==
LOC: ED 12:51
PROVIDERS: Emergency Medicine Emergency Medical Services
DX: J20.9 Acute bronchitis, unspecified (principal); Z20.822 Contact with and (suspected) exposure to COVID-19; F17.210 Nicotine dependence, cigarettes, uncomplicated
CPT/HCPCS: 84484; 85027; 87502; 87635; 87651; 93005; 96365; 99284; J0696; J2930; U0003

== ENCOUNTER 2022-07-30 13:56 | Emergency (ER) | payer OTHER ==
[~2022-07-30] VITALS: Ht 170.2 cm; Wt 59.0 kg
[2022-07-30 14:24] LABS: PLATELET COUNT 636 K/uL (152-353)
[2022-07-30 14:26] LABS: POTASSIUM 2.7 mmol/L (3.6-5.2)
[2022-07-30 17:56] LABS: PARTIAL THROMBOPLASTIN TIME 26.5 SECONDS (24.5-33.6)
[2022-07-30 23:00] VITALS: BP 118/77; TEMP 98.8
[2022-07-31] MEDS ORDERED: AMLO2.5T PO (10:56)
[2022-07-31] MEDS ORDERED: CEFD300C2 PO (11:11)
[2022-07-31] MEDS ORDERED: LORA0.5T17 PO (11:12)
[2022-07-31] MEDS ORDERED: TRAMADOL HYDROC50 MG PO (11:13)
[2022-07-31] MEDS ORDERED: VENLAFAXINE ER PO (11:16)
[2022-08-06] MEDS ORDERED: NORVASC 5MG TAB PO (09:10)
[2022-08-06] MEDS ORDERED: AMOX500T5 PO (09:10)
[2022-08-06] MEDS ORDERED: ACET-206 PO (09:10)
[2022-08-06] MEDS ORDERED: FAMOTIDINE20 MG PO (09:10)
[2022-08-06] MEDS ORDERED: ENTERIC COATED325 MG PO (09:10)
[2022-08-06] MEDS ORDERED: OLAN2.5T2 PO (09:11)
[2022-08-06] MEDS ORDERED: FOLI1TAB26 PO (09:11)
[2022-08-06] MEDS ORDERED: LOSA50TA PO (09:11)
[2022-08-06] MEDS ORDERED: GABA300C2 PO (09:11)
[2022-08-06] MEDS ORDERED: LORA10TA3 PO (09:11)
[2022-08-06] MEDS ORDERED: [UNRECOGNIZED DRUG - CODE] PO (09:12)
[2022-08-06] MEDS ORDERED: SERT50TA PO (09:12)
[2022-08-06] MEDS ORDERED: SIMV10TA PO (09:12)
== END 2022-07-30 23:00 | disposition still patient (30) ==
LOC: ED 13:56
PROVIDERS: Emergency Medicine
DX: F32.9 Major depressive disorder, single episode, unspecified (principal); E87.6 Hypokalemia; Z11.52 Encounter for screening for COVID-19
CPT/HCPCS: 80053; 80143; 80179; 80307; 80320; 81000; 84484; 85007; 85027; 85610; 85730; 87635; 93005; 96360; 99285; U0003

== ENCOUNTER 2022-10-04 14:09 | Observation (INO) | payer OTHER ==
[~2022-10-04] VITALS: Ht 170.2 cm; Wt 71.9 kg
[2022-10-04] VITALS (9 sets, daily range): BP systolic 81–126; BP diastolic 40–70; TEMP 98–98.7; Ht 170.2 cm; Wt 71.9 kg
[~2022-10-04 14:09] MED LIST changes: +ACET-206 PO; +AMOX500T5 PO; +CEFD300C2 PO; +ENTERIC COATED325 MG PO; +FAMOTIDINE20 MG PO; +LORA0.5T17 PO; +LORA10TA3 PO; +NORVASC 5MG TAB PO; +OLAN2.5T2 PO; +SERT50TA PO; +TRAMADOL HYDROC50 MG PO; +VENLAFAXINE ER PO; +[UNRECOGNIZED DRUG - CODE] PO
[2022-10-04 15:59] LABS: POTASSIUM 4.7 mmol/L (3.6-5.2)
[2022-10-04 16:07] LABS: PARTIAL THROMBOPLASTIN TIME 19.2 SECONDS (24.5-33.6)
[2022-10-04 16:17] LABS: PLATELET COUNT 268 K/uL (152-353)
[2022-10-04] MEDS ORDERED: ZYPREXA ZYDI15 MG PO (19:41)
[2022-10-04] MEDS ORDERED: COZAAR100 MG PO (19:42)
[2022-10-04] MEDS ORDERED: SERT50TA PO (19:42)
[2022-10-04] MEDS ORDERED: ARIPIPRAZOLE5 MG PO (19:43)
[2022-10-04] MEDS ORDERED: LORA10TA3 PO (19:48)
[2022-10-04] MEDS ORDERED: FOLI1TAB26 PO (19:48)
[2022-10-04] MEDS ORDERED: VENLAFAXINE HY150 M1 PO (19:50)
[2022-10-04] MEDS ORDERED: PROAIR HFA INH (19:52)
[2022-10-05] VITALS: BP 101/58; TEMP 97.9
[2022-10-05 04:00] VITALS: BP 110/60; TEMP 98.7
[2022-10-05 05:16] LABS: PLATELET COUNT 294 K/uL (152-353)
[2022-10-05 05:28] LABS: POTASSIUM 4.9 mmol/L (3.6-5.2)
[2022-10-05 08:00] VITALS: BP 136/76; TEMP 98.7
== END 2022-10-05 10:36 | disposition home health service (06) ==
LOC: ED 14:09 → MED/SURG 16:39
PROVIDERS: Family Medicine; ADMIT Internal Medicine; ATTEND Internal Medicine
DX: R41.82 Altered mental status, unspecified (principal); T43.595A Adverse effect of other antipsychotics and neuroleptics, initial encounter; Y92.89 Other specified places as the place of occurrence of the external cause; J44.9 Chronic obstructive pulmonary disease, unspecified; I13.0 Hypertensive heart and chronic kidney disease with heart failure and stage 1 through stage 4 chronic kidney disease, or unspecified chronic kidney disease; N18.4 Chronic kidney disease, stage 4 (severe); I50.9 Heart failure, unspecified; I25.2 Old myocardial infarction; G40.802 Other epilepsy, not intractable, without status epilepticus; Z86.73 Personal history of transient ischemic attack (TIA), and cerebral infarction without residual deficits; K21.9 Gastro-esophageal reflux disease without esophagitis; F41.8 Other specified anxiety disorders; I25.10 Atherosclerotic heart disease of native coronary artery without angina pectoris; I95.89 Other hypotension
CPT/HCPCS: 36415; 80053; 80307; 81002; 82550; 84484; 85027; 85610; 85730; 87635; 93005; 96374; 99220; 99284; G0378; J2405; U0003

== ENCOUNTER 2022-10-11 14:51 | Emergency (ER) | payer OTHER ==
[~2022-10-11] VITALS: Ht 165.1 cm; Wt 70.3 kg
[~2022-10-11 14:51] MED LIST changes: +ARIPIPRAZOLE5 MG PO; +COZAAR100 MG PO; +VENLAFAXINE HY150 M1 PO; +ZYPREXA ZYDI15 MG PO
[2022-10-11 16:30] VITALS: BP 92/59; TEMP 98
== END 2022-10-11 16:30 | disposition home or self-care (01) ==
LOC: ED 14:51
DX: B34.9 Viral infection, unspecified (principal); Z20.822 Contact with and (suspected) exposure to COVID-19
CPT/HCPCS: 87502; 87635; 96372; 99283; J1100; U0003

== ENCOUNTER 2022-12-09 15:39 | Outpatient (CLI) | payer OTHER ==
[2022-12-09 16:13] LABS: PLATELET COUNT 370 K/uL (152-353)
[2022-12-09 16:18] LABS: POTASSIUM 4.3 mmol/L (3.6-5.2)
== END 2022-12-09 19:00 | disposition home or self-care (01) ==
LOC: RAD 15:39
PROVIDERS: ATTEND Nurse Practitioner Family
DX: R07.89 Other chest pain (principal)
CPT/HCPCS: 36415; 80053; 82553; 84484; 85027; 93005

== ENCOUNTER 2023-03-20 13:42 | Observation (INO) | payer OTHER ==
[~2023-03-20] VITALS: Ht 170.2 cm; Wt 71.9 kg
[2023-03-20 13:48] VITALS: BP 110/76; TEMP 99.1
[2023-03-20 14:22] LABS: PLATELET COUNT 361 K/uL (152-353)
[2023-03-20 14:30] VITALS: BP 139/86
[2023-03-20 14:32] LABS: POTASSIUM 3.4 mmol/L (3.6-5.2)
[2023-03-20 15:55] VITALS: BP 134/74
[2023-03-20 19:37] VITALS: BP 182/60; TEMP 98.3; Ht 170.2 cm; Wt 71.9 kg
[2023-03-20 20:00] VITALS: BP 182/90; TEMP 98.3
[2023-03-20] MEDS ORDERED: EUTHYROX25 MCG PO (20:41)
[2023-03-20] MEDS ORDERED: OLANZAPINE5 MG PO (20:42)
[2023-03-20] MEDS ORDERED: AMLODIPINE BESYLATE PO (20:42)
[2023-03-20] MEDS ORDERED: SIMV10TA PO (20:44)
[2023-03-20] MEDS ORDERED: LOSA50TA PO (20:44)
[2023-03-20] MEDS ORDERED: SYMBICORT1 AE1 INH (20:45)
[2023-03-20 23:38] VITALS: BP 169/86; TEMP 98.5
[2023-03-21 03:43] VITALS: BP 169/86; TEMP 98.3
[2023-03-21 05:30] LABS: POTASSIUM 3.5 mmol/L (3.6-5.2)
[2023-03-21 05:31] LABS: PLATELET COUNT 302 K/uL (152-353)
[2023-03-21 08:00] VITALS: BP 98/49; TEMP 98.5
[2023-03-21 12:00] VITALS: BP 117/63; TEMP 98.5
[2023-03-21 16:00] VITALS: BP 141/75; TEMP 98.8
== END 2023-03-21 19:25 | disposition home or self-care (01) ==
LOC: ED 13:42 → MED/SURG 18:08
PROVIDERS: Family Medicine; ADMIT Physician Assistant; ATTEND Internal Medicine Endocrinology, Diabetes & Metabolism
DX: K52.89 Other specified noninfective gastroenteritis and colitis (principal); R10.9 Unspecified abdominal pain; E11.9 Type 2 diabetes mellitus without complications; K21.9 Gastro-esophageal reflux disease without esophagitis; I10 Essential (primary) hypertension; E78.49 Other hyperlipidemia; R11.2 Nausea with vomiting, unspecified; Z87.891 Personal history of nicotine dependence
CPT/HCPCS: 36415; 80048; 80053; 81000; 82150; 83690; 85027; 94760; 96361; 96365; 96374; 96375; 99221; 99284; G0378; J1170; J2060; J2405; J2765; J3490

== ENCOUNTER 2023-03-22 17:08 | Inpatient (IN) | payer OTHER ==
[~2023-03-22] VITALS: Ht 170.2 cm; Wt 69.0 kg
[2023-03-22] VITALS (8 sets, daily range): BP systolic 83–166; BP diastolic 42–82; TEMP 98.4
[~2023-03-22 17:08] MED LIST changes: +AMLODIPINE BESYLATE PO; +EUTHYROX25 MCG PO; +OLANZAPINE5 MG PO; +SYMBICORT1 AE1 INH
[2023-03-22 18:07] LABS: POTASSIUM 3.2 mmol/L (3.6-5.2)
[2023-03-22 18:08] LABS: PLATELET COUNT 367 K/uL (152-353)
[2023-03-23] VITALS (9 sets, daily range): BP systolic 93–131; BP diastolic 51–68; TEMP 98.5–99; Ht 170.2 cm; Wt 69.0 kg
[2023-03-23 07:10] LABS: PLATELET COUNT 284 K/uL (152-353)
[2023-03-24] VITALS (7 sets, daily range): BP systolic 117–185; BP diastolic 72–88; TEMP 98.3–99
[2023-03-24 12:09] LABS: PLATELET COUNT 364 K/uL (152-353)
[2023-03-24 12:30] LABS: POTASSIUM 3.4 mmol/L (3.6-5.2)
[2023-03-25] VITALS (7 sets, daily range): BP systolic 124–200; BP diastolic 71–100; TEMP 98–99
[2023-03-25 08:35] LABS: PLATELET COUNT 388 K/uL (152-353)
[2023-03-25 09:00] LABS: POTASSIUM 2.8 mmol/L (3.6-5.2)
[2023-03-26 04:00] VITALS: BP 133/70; TEMP 99.6
[2023-03-26 07:30] LABS: PLATELET COUNT 341 K/uL (152-353)
[2023-03-26 07:44] LABS: POTASSIUM 3.7 mmol/L (3.6-5.2)
[2023-03-26 08:00] VITALS: BP 134/63; TEMP 98.5
[2023-03-26 12:00] VITALS: BP 130/70; TEMP 98.3
[2023-03-26 16:00] VITALS: BP 145/82; TEMP 98.5
[2023-03-26 20:00] VITALS: BP 145/77; TEMP 98.6
[2023-03-27] VITALS: BP 104/65; TEMP 98.6
[2023-03-27 04:00] VITALS: BP 155/74; TEMP 98.7
[2023-03-27 07:24] LABS: PLATELET COUNT 292 K/uL (152-353)
[2023-03-27 07:52] LABS: POTASSIUM 3.9 mmol/L (3.6-5.2)
[2023-03-27 08:07] VITALS: BP 146/77; TEMP 99.2
[2023-03-27 12:06] VITALS: BP 170/81; TEMP 98.7
[2023-03-27] MEDS ORDERED: PEPCID40 MG PO (12:06)
[2023-03-27] MEDS ORDERED: PANTOPRAZOLE 40MG TA PO (12:07)
[2023-03-27] MEDS ORDERED: CIPRO500 MG PO (12:08)
[2023-03-27] MEDS ORDERED: METR250T19 PO (12:09)
[2023-03-27] MEDS ORDERED: ONDA4TAB3 SL (12:10)
== END 2023-03-27 12:59 | disposition home or self-care (01) | DRG 392 ==
LOC: ED 17:08 → MED/SURG 03-23 00:42
PROVIDERS: Family Medicine; Internal Medicine; ADMIT Internal Medicine Endocrinology, Diabetes & Metabolism; ATTEND Internal Medicine Endocrinology, Diabetes & Metabolism
DX: K52.89 Other specified noninfective gastroenteritis and colitis (principal); D72.828 Other elevated white blood cell count; N18.9 Chronic kidney disease, unspecified; F32.A Depression, unspecified; G62.89 Other specified polyneuropathies; E87.6 Hypokalemia; I12.9 Hypertensive chronic kidney disease with stage 1 through stage 4 chronic kidney disease, or unspecified chronic kidney disease; E03.8 Other specified hypothyroidism; R10.9 Unspecified abdominal pain; E11.9 Type 2 diabetes mellitus without complications; K21.9 Gastro-esophageal reflux disease without esophagitis; E78.49 Other hyperlipidemia; Z87.891 Personal history of nicotine dependence
CPT/HCPCS: 36415; 80048; 80053; 82550; 83690; 84439; 84443; 84484; 85027; 87015; 87045; 87899; 93005; 96361; 96365; 96367; 96372; 96374; 96375; 96376; 99284; J0744; J1170; J2405; J2543; J2550; J3230; J3480; J3490

== ENCOUNTER 2023-04-29 12:36 | Outpatient (CLI) | payer OTHER ==
[~2023-04-29 12:36] MED LIST changes: +CIPRO500 MG PO; +METR250T19 PO; +ONDA4TAB3 SL; +PEPCID40 MG PO
[2023-04-29 13:06] LABS: PLATELET COUNT 518 K/uL (152-353)
[2023-04-29 13:45] LABS: POTASSIUM 3.8 mmol/L (3.6-5.2)
== END 2023-04-29 18:50 | disposition home or self-care (01) ==
LOC: LABW 12:36
PROVIDERS: ATTEND Nurse Practitioner Family
DX: I12.9 Hypertensive chronic kidney disease with stage 1 through stage 4 chronic kidney disease, or unspecified chronic kidney disease (principal); N18.32 Chronic kidney disease, stage 3b; E78.2 Mixed hyperlipidemia; E03.8 Other specified hypothyroidism; Z13.1 Encounter for screening for diabetes mellitus; R53.83 Other fatigue; R79.89 Other specified abnormal findings of blood chemistry
CPT/HCPCS: 36415; 80053; 80061; 82306; 82607; 82746; 83036; 84439; 84443; 84481; 85027; 86376